=== PATIENT | female | born 1950 | race Caucasian/White ===

== ENCOUNTER 2016-10-22 12:29 | Outpatient (CLI) | payer MEDICARE, OTHER | END 2016-10-22 14:07 | LOC: CARD 12:29 | PROVIDERS: ATTEND Internal Medicine Cardiovascular Disease | DX: I10 Essential (primary) hypertension (principal); E11.9 Type 2 diabetes mellitus without complications; G47.30 Sleep apnea, unspecified | CPT/HCPCS: G0463 ==